=== PATIENT | female | born 2000 | race African-American/Black ===

== ENCOUNTER 2018-06-18 18:42 | Emergency (ER) | payer OTHER ==
[~2018-06-18] VITALS: Ht 157.5 cm; Wt 75.0 kg
[2018-06-18] MEDS ORDERED: ALBUTEROL SULFATE 2.5 MG/0.5 ML INH NEB SOLN INH ONE (20:45)
[2018-06-18] MEDS ORDERED: FAMOTIDINE 20 MG TAB PO ONE (20:45)
[2018-06-18] MEDS ORDERED: LORATADINE 10 MG TAB PO ONE (20:45)
[2018-06-18] MEDS ORDERED: CLAR1TAB2 PO (21:29)
[2018-06-18] MEDS ORDERED: VENTAER INH (21:29)
[2018-06-18 21:40] VITALS: BP 128/80
== END 2018-06-18 21:41 | disposition home or self-care (01) ==
LOC: M ED 18:42
DX: T78.40XA Allergy, unspecified, initial encounter (principal); Y92.9 Unspecified place or not applicable; Y93.9 Activity, unspecified; Z72.0 Tobacco use; Z88.0 Allergy status to penicillin; Z88.8 Allergy status to other drugs, medicaments and biological substances

== ENCOUNTER 2019-06-09 19:25 | Emergency (ER) | payer OTHER ==
[~2019-06-09] VITALS: Ht 157.5 cm; Wt 84.1 kg
[~2019-06-09 19:25] MED LIST: CLAR1TAB2 PO; VENTAER INH
[2019-06-09] MEDS ORDERED: ALBUTEROL 90 MCG/ACT 8GM HFA INHALER INH ONE (20:00)
--- NOTE | 2019-06-09 20:27 | REP ---
Clinical: Cough and dyspnea . Comparison: None . Technique: PA and lateral. Findings: The mediastinum and cardiac silhouette are normal. The lung rodriguez are clear and without acute consolidation, effusion, or pneumothorax. The skeletal structures are intact and normal. Impression: 1. No acute cardiopulmonary process. Electronically Signed by Alexy Baeza MD 06/09/2019 08:19 P
[2019-06-09] MEDS ORDERED: PROAAER10 INH (21:19)
[2019-06-09 21:42] VITALS: BP 125/82
== END 2019-06-09 21:40 | disposition home or self-care (01) ==
LOC: M ED 19:25 → EDBD 19:25 → M ED 21:40
DX: J45.909 Unspecified asthma, uncomplicated (principal); J06.9 Acute upper respiratory infection, unspecified; R06.02 Shortness of breath; F41.9 Anxiety disorder, unspecified; Z88.0 Allergy status to penicillin; Z88.8 Allergy status to other drugs, medicaments and biological substances